=== PATIENT | female | born 1975 | race Caucasian/White ===

== ENCOUNTER 2019-02-27 18:15 | Emergency (ER) | payer OTHER ==
[~2019-02-27] VITALS: Ht 160 cm; Wt 103.9 kg
[2019-02-27 18:20] VITALS: Ht 160 cm; Wt 103.9 kg
[2019-02-27 19:10] LABS: BASOPHIL % 0.5 % (0-2); PLATELET COUNT 249 x10^3mcL (130-400); RED CELL DISTRIBUTION WIDTH 13.1 % (11.5-14.5)
[2019-02-27 19:17] LABS: CALCIUM 8.7 mg/dL (8.5-10.1); CARBON DIOXIDE 25.2 mmol/L (21-32); CHLORIDE SERUM 109 mmol/L (98-107); CREATININE SERUM 0.6 mg/dL (0.6-1.0); GFR1 > 60 mL/min; GLUCOSE SERUM 79 mg/dL (74-106); SODIUM SERUM 142 mmol/L (136-145)
[2019-02-27 19:21] LABS: ALKALINE PHOSPHATASE 277 U/L (46-116); ALT/SGPT 67 U/L (14-59); AST/SGOT 39 U/L (15-37); BILIRUBIN TOTAL 0.38 mg/dL (0.20-1.00); LIPASE 223 IU/L (73-393); TOTAL PROTEIN, SERUM 6.8 g/dL (6.4-8.2)
[2019-02-27 19:23] LABS: ALBUMIN 3.3 g/dL (3.4-5.0)
[2019-02-27 20:59] VITALS: BP 121/74
== END 2019-02-27 20:59 | disposition home or self-care (01) ==
LOC: ED 18:15
PROVIDERS: Emergency Medicine
DX: K52.9 Noninfective gastroenteritis and colitis, unspecified (principal); Z90.710 Acquired absence of both cervix and uterus; Z91.040 Latex allergy status
CPT/HCPCS: J2405; J7030

== ENCOUNTER 2019-05-07 18:17 | Emergency (ER) | payer OTHER ==
[~2019-05-07] VITALS: Ht 162.6 cm; Wt 97.5 kg
[2019-05-07 18:44] VITALS: Ht 162.6 cm; Wt 97.5 kg
[2019-05-07 21:11] VITALS: BP 159/74
== END 2019-05-07 21:13 | disposition left against medical advice (07) ==
LOC: ED 18:17
DX: M79.662 Pain in left lower leg (principal)

== ENCOUNTER 2019-06-20 11:59 | Emergency (ER) | payer OTHER, SELFPAY ==
[~2019-06-20] VITALS: Ht 160 cm; Wt 92.5 kg
[2019-06-20 12:12] VITALS: Ht 160 cm; Wt 92.5 kg
[2019-06-20 13:25] VITALS: BP 106/49
== END 2019-06-20 13:25 | disposition home or self-care (01) ==
LOC: ED 11:59
DX: R55 Syncope and collapse (principal); Z90.710 Acquired absence of both cervix and uterus; Z98.84 Bariatric surgery status; Z91.040 Latex allergy status